=== PATIENT | female | born 1995 | race African-American/Black ===

== ENCOUNTER 2018-11-27 21:44 | Emergency (ER) | payer BC ==
--- NOTE | 2018-11-27 23:11 | RAD ---
TWO VIEWS OF THE CHEST: 11/27/18 COMPARISON: None. HISTORY: Chest pain that is intermittent for a few weeks. FINDINGS: Two views of the chest show normal sized cardiomediastinal silhouette. There is no evidence of consol idation, mass, or pleural effusion. The bones are unremarkable. IMPRESSION: No evidence of acute cardiopulmonary disease. POS: [id number]
== END 2018-11-28 00:56 | disposition home or self-care (01) ==
LOC: ERS 21:44
DX: M94.0 Chondrocostal junction syndrome [Tietze] (principal)
CPT/HCPCS: 71046; 93005